=== PATIENT | male | born 2000 | race Caucasian/White ===

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

== ENCOUNTER 2019-04-25 20:04 | Emergency (ER) | payer OTHER ==
--- NOTE | 2019-04-25 20:16 | PDOC ---
Rapid Medical Evaluation Time Seen by Provider: 04/25/19 20:13 Medical Evaluation: Allergies Allergy/AdvReac Type Severity Reaction Status Date / Time No Known Allergies Allergy Verified 12/10/17 12:25 04/25/19 20:13 PT presents for L ankle pain after twisting it in hole while playing soccer this afternoon. Took Alieve prior to arrival Exam: TTP of the lateral malleolus and at the base of the 5th metatarsal Order: X-ray, Tylenol Pt to proceed to the ER for evaluation Discharge Disposition - Diagnosis Ankle pain Qualifiers: Chronicity: acute Laterality: left Qualified Code(s): M25.572 - Pain in left ankle and joints of left foot - Referrals - Patient Instructions - Post Discharge Activity
[2019-04-25] MEDS ORDERED: ACETAMINOPHEN 325 MG TABLET (FP) PO ONE (20:17)
[2019-04-25 20:19] VITALS: BP 117/69; PULSE 101; TEMP 97.3; BMI 34.7
[2019-04-25] MEDS ORDERED: ACETAMINOPHEN 325 MG TABLET (FP) ONE (21:01)
--- NOTE | 2019-04-25 21:24 | PDOC ---
History of Present Illness - General Chief Complaint: Injury Stated Complaint: LEFT ANKLE Time Seen by Provider: 04/25/19 20:13 - History of Present Illness Initial Comments: 04/25/19 21:22 19-year-old male without comorbidities presents for evaluation of left ankle pain after an inversion type injury which she describable playing soccer today. Past History - Past Medical History Allergies/Adverse Reactions: Allergies Allergy/AdvReac Type Severity Reaction Status Date / Time No Known Allergies Allergy Verified 04/25/19 20:19 Home Medications: Ambulatory Orders Oseltamivir Phosphate [Tamiflu -] 75 mg PO BID #10 capsule 12/10/17 COPD: No - Suicide/Smoking/Psychosocial Hx Smoking History: Never smoked Have you smoked in the past 12 months: No Information on smoking cessation initiated: No Hx Alcohol Use: No Drug/Substance Use Hx: No Substance Use Type: None Review of Systems - Review of Systems Musculoskeletal: Yes: Joint Pain *Physical Exam - Vital Signs Last Vital Signs Temp Pulse Resp BP Pulse Ox 97.3 F L 101 H 16 117/69 100 04/25/19 20:16 04/25/19 20:16 04/25/19 20:16 04/25/19 20:16 04/25/19 20:16 - Physical Exam Comments: 04/25/19 21:22 Left ankle skin color and temperature are normal range of motion is full with mild discomfort. There is no tenderness about the knee proximal fibula or along its distal course. No tenderness about the medial or lateral malleolus base of the fifth metatarsal or navicular. Tenderness over the ATFL without instability no gross sensory motor deficits neurovascular intact ED Treatment Course - Medications Given in the ED: ED Medications Discontinued Medications Generic Name Dose Route Start Last Admin Trade Name Freq PRN Reason Stop Dose Admin Acetaminophen 650 mg 04/25/19 20:17 04/25/19 21:02 Tylenol - PO 04/25/19 20:18 650 mg ONCE ONE Administration Medical Decision Making - Medical Decision Making 04/25/19 21:22 X-rays of the left ankle show no evidence of fracture trauma or destructive process. This is a lateral ankle sprain weight-bear as tolerated with Aircast and crutches follow up with [facility]. Note for work provided discussed use of Tylenol and Motrin. *DC/Admit/Observation/Transfer Diagnosis at time of Disposition: Ankle sprain Ankle pain Qualifiers: Chronicity: acute Laterality: left Qualified Code(s): M25.572 - Pain in left ankle and joints of left foot - Discharge Dispostion Disposition: HOME Condition at time of disposition: Stable Decision to Admit order: No - Referrals Referrals: Emile Jordan DO [Staff Physician] - - Patient Instructions Printed Discharge Instructions: Ankle Sprain, DI for Ankle Sprain Additional Instructions: He may weight-bear as tolerated with the Aircast and crutches. Return to the emergency room for worsening symptoms. Follow-up with orthopedic surgery in one to 2 days without fail for further evaluation and treatment options. Tylenol and Motrin as directed for pain and swelling. - Post Discharge Activity
== END 2019-04-25 22:11 | disposition home or self-care (01) ==
LOC: JERFT 20:04
PROC: 2W3RX1Z Immobilization of Left Lower Leg using Splint (ICD-10-PCS; principal; 2019-04-25)
DX: M25.572 Pain in left ankle and joints of left foot (principal); S93.402A Sprain of unspecified ligament of left ankle, initial encounter; X58.XXXA Exposure to other specified factors, initial encounter; Y93.9 Activity, unspecified; Y92.89 Other specified places as the place of occurrence of the external cause
CPT/HCPCS: 73610-TC-LT-FY; 73630-TC-LT; 99282-25

== ENCOUNTER 2019-05-01 14:05 | Emergency (ER) | payer OTHER ==
--- NOTE | 2019-05-01 14:12 | PDOC ---
Rapid Medical Evaluation Time Seen by Provider: 05/01/19 14:11 Medical Evaluation: Allergies Allergy/AdvReac Type Severity Reaction Status Date / Time No Known Allergies Allergy Verified 04/25/19 20:19 05/01/19 14:11 HPI: Hematuria and dysuria x3 days PE: No gross deficits ORDERS: UA and Cx labs Discharge Disposition - Diagnosis Hematuria - Referrals - Patient Instructions - Post Discharge Activity
[2019-05-01 14:15] VITALS: BMI 33.9
[2019-05-01 16:35] LABS: BASO % 0.8 % (0-2.0); EOS % 0.7 % (0-4.5); HEMATOCRIT 48.1 % (35.4-49); HEMOGLOBIN 16.3 GM/dL (11.7-16.9); LYMPH % 36.2 % (8-40); MCH 28.7 pg (25.7-33.7); MCHC 33.9 g/dl (32.0-35.9); MEAN CELL VOLUME 84.5 fl (80-96); MEAN PLT VOLUME 9.4 fl (7.5-11.1); MONO % 7.7 % (3.8-10.2); NEUT % 54.6 % (42.8-82.8); PLATELET COUNT 210 K/MM3 (134-434); RBC 5.69 M/mm3 (4.00-5.60); RDW 13.3 % (11.9-15.9); WHITE BLOOD COUNT 10.6 K/mm3 (4.0-10.0)
[2019-05-01 16:58] LABS: ALBUMIN 4.4 g/dl (3.4-5.0); BILIRUBIN,TOTAL 0.4 mg/dL (0.2-1); BLOOD UREA NITROGEN 14.5 mg/dL (7-18); CALCIUM 9.3 mg/dL (8.5-10.1); CREATININE 1.1 mg/dL (0.55-1.3); POTASSIUM 4.2 mmol/L (3.5-5.1); TOT PROT 7.7 g/dl (6.4-8.2)
--- NOTE | 2019-05-01 17:05 | PDOC ---
History of Present Illness - General Chief Complaint: Hematuria Stated Complaint: BLOOD IN URINE Time Seen by Provider: 05/01/19 14:11 - History of Present Illness Initial Comments: The pt is a 19M w/ no reported PMH who presents for evaluation of 3 days of dysuria and hematuria. He reports dysuria and gross blood at the end of urination. Denies blood between urinary episodes. Denies fevers/chills, flank pain, inguinal pain, sexual activity, discharge, rash, mass, having had this pain before, diarrhea, blood in his stool. Denies trauma PMH: Denies PSH: Denies Meds: Denies SH: Denies x3 PMD: N/A 05/01/19 18:48 Past History - Past Medical History Allergies/Adverse Reactions: Allergies Allergy/AdvReac Type Severity Reaction Status Date / Time No Known Allergies Allergy Verified 05/01/19 14:12 COPD: No - Suicide/Smoking/Psychosocial Hx Smoking History: Never smoked Have you smoked in the past 12 months: No Hx Alcohol Use: No Drug/Substance Use Hx: No Substance Use Type: None Review of Systems - Review of Systems Able to Perform ROS?: Yes Comments:: GENERAL/CONSTITUTIONAL: No fever or chills. No weakness HEAD, EYES, EARS, NOSE AND THROAT: No change in vision. No ear pain or discharge. No sore throat CARDIOVASCULAR: No chest pain or shortness of breath RESPIRATORY: Denies cough, hemoptysis GASTROINTESTINAL: No nausea, vomiting, diarrhea or constipation MUSCULOSKELETAL: No joint or muscle swelling or pain. No neck or back pain SKIN: No rash NEUROLOGIC: No headache, vertigo, loss of consciousness, or change in strength/ sensation ENDOCRINE: No increased thirst. No abnormal weight change HEMATOLOGIC/LYMPHATIC: No anemia, easy bleeding, or history of blood clots ALLERGIC/IMMUNOLOGIC: No hives or skin allergy 05/01/19 16:28 Is the patient limited Yoruba proficient: No *Physical Exam - Vital Signs Last Vital Signs Temp Pulse Resp BP Pulse Ox 98.3 F 113 H 18 145/70 98 05/01/19 14:13 05/01/19 14:13 05/01/19 14:13 05/01/19 14:13 05/01/19 14:13 - Physical Exam Comments: GENERAL: Awake, alert, and oriented to person/place/time, in no acute distress HEAD: No signs of trauma, normocephalic, atraumatic EYES: PERRLA, EOMI, sclera anicteric, conjunctiva clear ENT: Hearing grossly normal, nares patent, oropharynx clear without exudates. Moist mucosa LUNGS: No distress, speaks in full sentences, clear to auscultation bilaterally HEART: Regular rate and rhythm, normal S1 and S2, no murmurs appreciated, peripheral pulses normal and equal bilaterally ABDOMEN: Soft, nontender, normoactive bowel sounds. No guarding, no rebound. No CVA TTP : Uncircumcised, no balanitis, no penile discharge, no blood at meatus, testicles w/o mass, TTP, swelling; No inguinal hernia palpated; no inguinal LAD EXTREMITIES: Ambulating in ED; Moves all extremities independently; LLE ankle boot in place 2/2 recent ankle strain NEUROLOGICAL: Cranial nerves II through XII grossly intact. Normal speech, normal gait, no focal sensorimotor deficits SKIN: Warm, Dry 05/01/19 16:28 ED Treatment Course - LABORATORY CBC & Chemistry Diagram: 05/01/19 16:15 05/01/19 16:15 Medical Decision Making - Medical Decision Making The pt is a 19M w/ no reported PMH who presents for evaluation of 3 days of dysuria and hematuria concerning for UTI vs nephrolithiasis, less likely STI, no evidence of balanitis, no testitular TTP/swelling ED Course Labs sent No leukocytosis No anemia Lytes wnl No CJ LFTs unremarkable UA pending CT spiral pending Pt signed out to Dr. Hwang *DC/Admit/Observation/Transfer Diagnosis at time of Disposition: Hematuria Qualifiers: Hematuria type: unspecified type Qualified Code(s): R31.9 - Hematuria, unspecified - Discharge Dispostion Disposition: HOME Condition at time of disposition: Stable - Referrals Referrals: Ali,Abdalexanderah, S.A. [Other Staff,non-medical] - Adam Vale MD [Staff Physician] - Massimo Ramirez MD [Staff Physician] - Terrell Crowley MD [Staff Physician] - Avni Diaz MD., MD [Staff Physician] - Amadou Alexandre MD [Staff Physician] - Remy Hwang MD [Staff Physician] - - Patient Instructions Printed Discharge Instructions: DI for Hematuria Additional Instructions: Discharge Instructions: You were seen in the emergency department for blood in your urine. You had blood tests, which did not show any concerning changes, and a urine test which showed blood in the urine but no infection. Your CT scan did not show a stone or any other concerning abnormalities. Home Care: - You may use over the counter pain medications such as acetaminophen (Tylenol) 650-1000mg every 6-8 hours for discomfort. Avoid medications such as ibuprofen ( Advil, Motrin) or naproxen (Aleve) as these could increase bleeding. - Make sure you are drinking plenty of fluids to help pass the kidney stone Follow Up: - You have been given contact information for several urologists. Try to make an appointment for follow up within the next week. - Seek immediate medical care if you have worsening of your symptoms, you notice worsening blood, you start to have abdominal or back pain, you stop making urine entirely, you develop fevers to 101F, or you have any medical emergency. - Post Discharge Activity
[2019-05-01 18:25] LABS: EPI CELLS 1.4 /HPF (0-5/HPF); HYALINE CASTS 0 /lpf (0-8); PH,URINE 6.5 (5.0-8.0); URINE APPEARANCE CLEAR; URINE BACTERIA 8.6 /hpf (NEGATIVE); URINE BILIRUBIN NEGATIVE (NEGATIVE); URINE COLOR YELLOW; URINE GLUCOSE (UA) NEGATIVE (NEGATIVE); URINE KETONE NEGATIVE (NEGATIVE); URINE LEUK ESTERASE NEGATIVE (NEGATIVE); URINE NITRITE NEGATIVE (NEGATIVE); URINE PROTEIN NEGATIVE (NEGATIVE); URINE RBC 102 /hpf (0-4); URINE WBC 1 /hpf (0-5)
--- NOTE | 2019-05-01 18:38 | PDOC ---
Documentation entered by Madhu Mosher SCRIBE, acting as scribe for Ten Salas MD. Ten Salas MD: This documentation has been prepared by the kaleigheNomi Elijah, SCRIBE, under my direction and personally reviewed by me in its entirety. I confirm that the documentation accurately reflects all work, treatment, procedures, and medical decision making performed by me. Attending Attestation - Resident Resident Name: Delfino Sykes - ED Attending Attestation I have performed the following: I have examined & evaluated the patient, The case was reviewed & discussed with the resident, I agree w/resident's findings & plan, Exceptions are as noted - HPI HPI: 05/01/19 18:34 19 M with no PMH presents to ED with blood in his urine. Pt states that over the past 3 days, he notices a small amount of blood in his urine at the end of the stream. He endorses a burning pain in his urethra as well. Denies any injury or trauma to the area. Denies flank pain. Denies F/C. Pt states he is not sexually active, nor has he ever been. Pt denies scrotal pain. Denies abdominal pain. - Physicial Exam PE: 05/01/19 18:36 "GENERAL: Awake, alert, and fully oriented, in no acute distress. HEAD: No signs of trauma EYES: PERRLA, EOMI, sclera anicteric, conjunctiva clear ENT: Auricles normal inspection, hearing grossly normal, nares patent, oropharynx clear without exudates. Moist mucosa NECK: Nontender, no stepoffs, Normal ROM, supple, no lymphadenopathy, JVD, or masses LUNGS: Breath sounds equal, clear to auscultation bilaterally. No wheezes, and no crackles HEART: Regular rate and rhythm, normal S1 and S2, no murmurs, rubs or gallops ABDOMEN: Soft, nontender, normoactive bowel sounds. No guarding, no rebound. No masses EXTREMITIES: Normal range of motion, no edema. No clubbing or cyanosis. No cords, erythema, or tenderness NEUROLOGICAL: Cranial nerves II through XII intact. 5/5 strength and sensation in all extremities, Normal speech, normal gait, normal cerebellar function SKIN: Warm, Dry, normal turgor, no rashes or lesions noted. : uncircumcised penis, no scrotal masses or tenderness, normal lay, no evidence of traumatic injury, no balanitis - Medical Decision Making 05/01/19 18:36 19 M with hematuria and dysuria. Possible hemorrhagic cystitis. Pt with no evidence of traumatic urethral injury. Pt with no flank pain to suggest nephrolithiasis. - Labs, UA, UCx - GC/CT Pt signed out to oncoming attending at 7PM, pending labs, CT and re-evaluation
--- NOTE | 2019-05-01 19:36 | PDOC ---
*Physical Exam - Vital Signs Last Vital Signs Temp Pulse Resp BP Pulse Ox 98.3 F 113 H 18 145/70 98 05/01/19 14:13 05/01/19 14:13 05/01/19 14:13 05/01/19 14:13 05/01/19 14:13 ED Treatment Course - LABORATORY CBC & Chemistry Diagram: 05/01/19 16:15 05/01/19 16:15 - ADDITIONAL ORDERS Additional order review: Laboratory Results 05/01/19 05/01/19 16:22 16:15 Sodium 140 Potassium 4.2 Chloride 106 Carbon Dioxide 29 Anion Gap 5 L BUN 14.5 Creatinine 1.1 Est GFR (CKD-EPI)AfAm 111.41 Est GFR (CKD-EPI)NonAf 96.13 Random Glucose 89 Calcium 9.3 Total Bilirubin 0.4 AST 30 ALT 57 Alkaline Phosphatase 81 Total Protein 7.7 Albumin 4.4 Urine Color Yellow Urine Appearance Clear Urine pH 6.5 Ur Specific [place] 1.023 Urine Protein Negative Urine Glucose (UA) Negative Urine Ketones Negative Urine Blood 2+ H Urine Nitrite Negative Urine Bilirubin Negative Urine Urobilinogen 1.0 Ur Leukocyte Esterase Negative Urine WBC (Auto) 1 Urine RBC (Auto) 102 Urine Casts (Auto) 0 U Epithel Cells (Auto) 1.4 Urine Bacteria (Auto) 8.6 05/01/19 16:15 RBC 5.69 H MCV 84.5 MCHC 33.9 RDW 13.3 MPV 9.4 Neutrophils % 54.6 Lymphocytes % 36.2 Monocytes % 7.7 Eosinophils % 0.7 Basophils % 0.8 Medical Decision Making - Medical Decision Making 05/01/19 19:34 Sign out received from Dr Sykes. Gee Irizarry is a 19yo otherwise healthy man who presented to the ED with hematuria. ED course so far was notable for: - Labs unremarkable - UA with positive RBCs - CT renal stone completed, read pending 05/01/19 21:03 - CT negative for stone - Will update Mr Irizarry; plan to d/c with urology follow up 05/01/19 21:16 - Advised regarding home care, follow up, return precautions. Pt understands and agrees with the plan. Will call to schedule urology follow up. Discussed with Dr Pedroza and Martina. Radha Hwang PGY2 *DC/Admit/Observation/Transfer Diagnosis at time of Disposition: Hematuria Qualifiers: Hematuria type: unspecified type Qualified Code(s): R31.9 - Hematuria, unspecified - Discharge Dispostion Disposition: HOME Condition at time of disposition: Stable Decision to Admit order: No - Referrals Referrals: Brendan Balbuena, S.A. [Other Staff,non-medical] - Adam Vale MD [Staff Physician] - Massimo Ramirez MD [Staff Physician] - Terrell Crowley MD [Staff Physician] - Avni Diaz MD., MD [Staff Physician] - Amadou Alexandre MD [Staff Physician] - Remy Hwang MD [Staff Physician] - - Patient Instructions Printed Discharge Instructions: DI for Hematuria Additional Instructions: Discharge Instructions: You were seen in the emergency department for blood in your urine. You had blood tests, which did not show any concerning changes, and a urine test which showed blood in the urine but no infection. Your CT scan did not show a stone or any other concerning abnormalities. Home Care: - You may use over the counter pain medications such as acetaminophen (Tylenol) 650-1000mg every 6-8 hours for discomfort. Avoid medications such as ibuprofen ( Advil, Motrin) or naproxen (Aleve) as these could increase bleeding. - Make sure you are drinking plenty of fluids to help pass the kidney stone Follow Up: - You have been given contact information for several urologists. Try to make an appointment for follow up within the next week. - Seek immediate medical care if you have worsening of your symptoms, you notice worsening blood, you start to have abdominal or back pain, you stop making urine entirely, you develop fevers to 101F, or you have any medical emergency. - Post Discharge Activity
[2019-05-01 22:02] VITALS: BP 122/86; PULSE 87; TEMP 98.8
== END 2019-05-01 22:02 | disposition home or self-care (01) ==
LOC: JER 14:05
DX: R31.9 Hematuria, unspecified (principal)
CPT/HCPCS: 36415; 74176-TC; 80053; 81003; 85025; 87086; 99283-25

== ENCOUNTER 2019-05-08 09:50 | Emergency (ER) | payer OTHER ==
[2019-05-08 10:17] VITALS: BP 106/64; PULSE 72; TEMP 98.2; BMI 33.4
--- NOTE | 2019-05-08 10:29 | PDOC ---
History of Present Illness - General Chief Complaint: Rash Stated Complaint: RASH ON HAND/FEET Time Seen by Provider: 05/08/19 10:19 History Source: Patient Exam Limitations: Clinical Condition - History of Present Illness Initial Comments: 05/08/19 10:23 Patient with no significant past medical history present with complaint of red itchy rash to bilateral palms of hands since yesterday and now started having rash to left ankle after scratching left ankle yesterday. Denies fever, chills or recent travel. Patient does not know what caused the rash. Denies any other symptoms Timing/Duration: reports: yesterday Past History - Past Medical History Allergies/Adverse Reactions: Allergies Allergy/AdvReac Type Severity Reaction Status Date / Time No Known Allergies Allergy Verified 05/01/19 14:12 Home Medications: Ambulatory Orders Famotidine [Pepcid -] 20 mg PO BID 5 Days #10 tablet 05/08/19 Hydrocortisone 1% Cream [Hytone 1% Cream -] 1 applic TP BID PRN 7 Days #1 tube 05/08/19 predniSONE [Deltasone -] 20 mg PO BID 5 Days #10 tablet 05/08/19 COPD: No - Immunization History Immunization Up to Date: No - Suicide/Smoking/Psychosocial Hx Smoking History: Never smoked Have you smoked in the past 12 months: No Information on smoking cessation initiated: No Hx Alcohol Use: No Drug/Substance Use Hx: No Substance Use Type: None Review of Systems - Review of Systems Able to Perform ROS?: Yes Is the patient limited Serbian proficient: No Constitutional: No: Chills, Fever, Malaise HEENTM: No: Symptoms Reported, See HPI, Eye Pain, Blurred Vision, Tearing, Recent change in vision, Double Vision, Cataracts, Ear Pain, Ocular Prothesis, Ear Discharge, Nose Pain, Nose Congestion, Tinnitus, Nose Bleeding, Hearing Loss , Throat Pain, Throat Swelling, Mouth Pain, Dental Problems, Difficulty Swallowing, Mouth Swelling, Other Respiratory: No: Symptoms reported Cardiac (ROS): No: Symptoms Reported ABD/GI: No: Symptoms Reported Musculoskeletal: No: Symptoms Reported Integumentary: Yes: Symptoms Reported, Pruritus, Rash (b/l palms) Neurological: No: Headache, Numbness, Paresthesia All Other Systems: Reviewed and Negative *Physical Exam - Vital Signs Last Vital Signs Temp Pulse Resp BP Pulse Ox 98.2 F 72 20 106/64 100 05/08/19 10:14 05/08/19 10:14 05/08/19 10:14 05/08/19 10:14 05/08/19 10:14 - Physical Exam General Appearance: Yes: Nourished, Appropriately Dressed. No: Apparent Distress HEENT: positive: EOMI, ANGELICA, Normal ENT Inspection, Pharynx Normal Neck: positive: Supple Respiratory/Chest: positive: Lungs Clear, Normal Breath Sounds. negative: Respiratory Distress, Accessory Muscle Use Cardiovascular: positive: Regular Rhythm, Regular Rate Musculoskeletal: positive: Normal Inspection Extremity: positive: Normal Capillary Refill, Normal Inspection, Normal Range of Motion. negative: Cyanosis Integumentary: positive: Normal Color, Dry, Rash (diffused urticarial rash to plams of b/l hands w/o excoriations). negative: Clammy Neurologic: positive: Fully Oriented, Alert, Normal Mood/Affect, Normal Response , Motor Strength 5/5 Medical Decision Making - Medical Decision Making 05/08/19 10:25 Patient with no significant past medical history present with complaint of red itchy rash to bilateral palms of hands since yesterday and now started having rash to left ankle after scratching left ankle yesterday. Denies fever, chills or recent travel. Patient does not know what caused the rash. Denies any other symptoms Exam significant for diffuse urticarial rash to palmar aspect of bilateral hands without excoriations otherwise unremarkable exam. No rash to bilateral ankles. Symptoms likely contact dermatitis. Patient be discharged home on by mouth prednisone and Pepcid for ALLERGIC dermatitis with topical hydrocortisone with dermatology follow-up as needed *DC/Admit/Observation/Transfer Diagnosis at time of Disposition: Contact dermatitis Qualifiers: Contact dermatitis type: allergic Contact dermatitis trigger: unspecified trigger Qualified Code(s): L23.9 - Allergic contact dermatitis, unspecified cause - Discharge Dispostion Disposition: HOME Condition at time of disposition: Stable Decision to Admit order: No - Prescriptions Prescriptions: Famotidine [Pepcid -] 20 mg PO BID 5 Days #10 tablet Hydrocortisone 1% Cream [Hytone 1% Cream -] 1 applic TP BID PRN 7 Days #1 tube PRN Reason: rash predniSONE [Deltasone -] 20 mg PO BID 5 Days #10 tablet - Referrals Referrals: Amena Montana MD [Staff Physician] - - Patient Instructions Printed Discharge Instructions: Contact Dermatitis Additional Instructions: Take prescribed medication as prescribed. Keep hands clean and wash hands with soap as needed. Follow-up referred dermatology if no improvement in 3 days - Post Discharge Activity
== END 2019-05-08 10:35 | disposition home or self-care (01) ==
LOC: JERFT 09:50
DX: L23.9 Allergic contact dermatitis, unspecified cause (principal)
CPT/HCPCS: 99281-25

== ENCOUNTER 2023-07-12 22:31 | Emergency (ER) | payer OTHER ==
[2023-07-12 22:39] VITALS: BP 116/73; PULSE 105; RESP 18; TEMP 98.3; BMI 36.0
== END 2023-07-13 03:27 | disposition home or self-care (01) ==
LOC: JER 22:31
CPT/HCPCS: 73090-TC-LT-FY; 73130-TC-LT-FY